=== PATIENT | female | born 2000 | race Two or more races ===

== ENCOUNTER 2021-02-04 14:56 | Emergency (ER) | payer SELFPAY ==
[~2021-02-04] VITALS: Ht 170.2 cm; Wt 85.0 kg
[2021-02-04 15:03] VITALS: BP 115/75
--- NOTE | 2021-02-04 15:57 | NUR ---
PT UP TO RESTROOM HAS STEADY INDEPENDENT GAIT
[2021-02-04 16:25] LABS: BASOPHILS % (AUTO) 1 % (0-1); EOSINOPHILS % (AUTO) 1 % (1-7); LYMPHOCYTES % (AUTO) 17 % (22-44); MEAN CORPUSCULAR HEMOGLOBIN 25.2 pg (27.0-34.8); MEAN CORPUSCULAR HGB CONC 32.8 g/dL (32.4-35.8); MEAN PLATELET VOLUME 9.9 fL (7.4-10.4); MONOCYTES % (AUTO) 8 % (2-9); NEUTROPHILS % (AUTO) 74 % (42-75); PLATELET COUNT 255 x10^3/uL (130-400); RED BLOOD COUNT 4.67 x10^6/uL (3.82-5.3); RED CELL DISTRIBUTION WIDTH 16.1 % (9.6-15.2)
[2021-02-04 16:30] LABS: ALBUMIN 3.7 g/dL (3.4-5.0); ANION GAP 7 mmol/L (5-15); CHLORIDE 109 mmol/L (98-107); CREATININE 0.58 mg/dL (0.55-1.02)
== END 2021-02-04 17:36 | disposition home or self-care (01) ==
LOC: ED 17:33
DX: R42 Dizziness and giddiness (principal); R11.0 Nausea; R00.0 Tachycardia, unspecified
CPT/HCPCS: 36415; 80048; 82040; 84703; 85025; 93005; 99284